=== PATIENT | female | born 1995 | race African-American/Black ===

== ENCOUNTER 2017-10-28 23:33 | Emergency (ER) | payer SELFPAY ==
[~2017-10-28] VITALS: Ht 165.1 cm; Wt 59.0 kg
[2017-10-30] MEDS ORDERED: DIPHENHYDRAMINE 25MG CAPSULE PO ONE (01:00)
[2017-10-30 15:00] VITALS: BP 115/66
== END 2017-10-30 17:57 | disposition home or self-care (01) ==
LOC: ER 23:33
DX: F84.0 Autistic disorder (principal)
CPT/HCPCS: 99284